=== PATIENT | male | born 1950 | race Two or more races ===

== ENCOUNTER 2020-11-24 07:10 | Outpatient (CLI) | payer OTHER ==
[2020-12-02] MEDS ORDERED: DOLOGESIC 500-1 EACH PO (14:54)
== END 2020-11-24 07:13 | disposition home or self-care (01) ==
LOC: SONOGRAMA 07:10
PROVIDERS: ATTEND Orthopaedic Surgery
DX: S42.221A 2-part displaced fracture of surgical neck of right humerus, initial encounter for closed fracture (principal); X58.XXXA Exposure to other specified factors, initial encounter; Y93.89 Activity, other specified; Y92.89 Other specified places as the place of occurrence of the external cause; Y99.8 Other external cause status